=== PATIENT | female | born 1965 | race Caucasian/White ===

== ENCOUNTER → 2017-04-25 | Outpatient (CLI) | payer BC ==
[~2017-04-25] MED LIST: CALC-51 PO; CHOL1000 PO; CYCL0.052 OP; FLUO0.05 TD; IBUP-103 PO; JNL12021 PO; NYSTCRE32 TD; PANT40TA PO; RSTOPS OP; SIME80CH PO; SULF800T23 PO
--- NOTE | 2017-04-25 16:06 | DIAGNOSTIC IMAGING REPORT ---
RIGHT THUMB 3 VIEWS CLINICAL HISTORY: Right thumb pain COMPARISON: None DISCUSSION: No fractures are visualized. There are no erosive changes. There is equivocal 7 mm lytic focus involving the base of the distal phalanx. Correlation with the patient's site of pain is recommended. If the patient has pain localized to this area, an MRI could be obtained in follow-up to confirm or refute the presence of a true lesion there is no significant soft tissue swelling IMPRESSION: Equivocal 7 mm lytic lesion involving the base of distal phalanx of the thumb. Correlation with the patient's site of pain is recommended. An MRI could be obtained in follow-up as deemed clinically indicated. Electronically signed by: Heber Deras M.D. 04/25/2017 4:05 PM Dictated Date/Time: 04/25/2017 4:02 PM
== END | disposition home or self-care (01) ==
LOC: C.RADBC 15:46
PROVIDERS: ATTEND Physician Assistant Medical
DX: M79.644 Pain in right finger(s) (principal); M25.841 Other specified joint disorders, right hand

== ENCOUNTER → 2017-04-26 | Outpatient (CLI) | payer BC ==
[2017-04-26 09:32] LABS: BASO % 0.5 %; BASO ABS # 0.03 K/uL (0-0.2); COMPLETE YES; EOS % 5.9 %; HEMATOCRIT 44.5 % (37-47); IG% 0.2 %; LYMPH % 42.7 %; LYMPH ABS # 2.67 K/uL (1.2-3.4); MEAN CELL VOLUME 94.1 fL (80-100); MEAN CORPUSCULAR HEMOGLOBIN 31.9 pg (25-34); MEAN CORPUSCULAR HGB CONC 33.9 g/dl (32-36); MEAN PLATELET VOLUME 9.4 fL (7.4-10.4); MONO % 8.8 %; NEUT % 41.9 %; PLATELET COUNT 303 K/uL (130-400); RED BLOOD COUNT 4.73 M/uL (4.2-5.4); WHITE BLOOD COUNT 6.25 K/uL (4.8-10.8)
[2017-04-26 10:12] LABS: CHOLESTEROL/HDL RATIO 2.1
[2017-04-26 10:15] LABS: ALT/SGPT 24 U/L (12-78); AST/SGOT 20 U/L (15-37); BLOOD UREA NITROGEN 13 mg/dl (7-18); CALCIUM 9.5 mg/dl (8.5-10.1); CARBON DIOXIDE 31 mmol/L (21-32); CHLORIDE 106 mmol/L (98-107); CREATININE 0.79 mg/dl (0.60-1.20); GLUCOSE 100 mg/dl (70-99); SODIUM 141 mmol/L (136-145)
[2017-04-26 10:18] LABS: ALB/GLOB RATIO 1.1 (0.9-2); ALKALINE PHOSPHATASE 126 U/L (45-117)
[2017-04-26 12:48] LABS: URINE APPEARANCE CLEAR (CLEAR); URINE BILIRUBIN NEG (NEG); URINE COLOR YELLOW; URINE EPITHELIAL CELL AUTO 0-5 /lpf (0-5); URINE NITRITE NEG (NEG); URINE PH 6.5 (4.5-7.5); URINE SPECIFIC GRAVITY 1.018 (1.000-1.030); UROBILINOGEN NEG (NEG)
[2017-04-26 12:56] LABS: MANUAL MICROSCOPIC REQUIRED? NO; REVIEW REQ? NO
[2017-04-26 13:34] LABS: URINE PROTIEN/CREAT RATIO 0.1 (0-0.2); URINE TOTAL PROTEIN 10.4 mg/dl (0-11.9)
--- NOTE | 2017-05-10 07:54 | CODING QUERY MEDICAL NECESSITY ---
CQSUPPORTING DIAGNOSIS NEEDED A supporting diagnosis is required for the test/procedure performed on this patient in order for us to be reimbursed by the patient's insurance. Please provide a supporting diagnosis for the following test/procedure listed below next to the test name along with your signature. *If there is no additional diagnosis for this patient that would support the following test/procedure please document that below next to the test/procedure. Test(s)/Procedure(s) that require a supporting diagnosis: UBALDO 04/26/17 VITAMIN D TEST Provider Signature: Date: Thank you Nia Rachel Health Information Management Once completed, please kindly fax back to [phone] For questions please call [phone]
== END | disposition home or self-care (01) ==
LOC: C.LAB1850 08:38
PROVIDERS: ATTEND Internal Medicine Nephrology
DX: Z00.00 Encounter for general adult medical examination without abnormal findings (principal); R52 Pain, unspecified; N02.8 Recurrent and persistent hematuria with other morphologic changes; R31.29 Other microscopic hematuria; E55.9 Vitamin D deficiency, unspecified

== ENCOUNTER → 2017-05-07 | Outpatient (CLI) | payer BC ==
--- NOTE | 2017-05-08 08:01 | MAMMOGRAPHY REPORT ---
BILATERAL DIGITAL SCREENING MAMMOGRAM TOMOSYNTHESIS WITH CAD: 05/07/2017 CLINICAL HISTORY: Routine screening. Patient has no complaints. TECHNIQUE: Breast tomosynthesis in addition to standard 2D mammography was performed. Current study was also evaluated with a Computer Aided Detection (CAD) system. COMPARISON: Comparison is made to exams dated: 04/21/2016 mammogram, 04/16/2015 mammogram, 03/18/2014 m ammogram, 03/11/2013 mammogram, 03/04/2012 mammogram, and 02/27/2011 mammogram - [facility] ter. BREAST COMPOSITION: The tissue of both breasts is heterogeneously dense, which may obscure small mas ses. FINDINGS: The parenchymal pattern is unchanged. No developing mass, architectural distortion or clus ter of suspicious microcalcifications is seen in either breast. IMPRESSION: ACR BI-RADS CATEGORY 2: BENIGN There is no mammographic evidence of malignancy. A 1 year screening mammogram is recommended. The pa tient will receive written notification of the results. Approximately 10% of breast cancers are not detected with mammography. A negative mammographic report should not delay biopsy if a clinically suggestive mass is present. Vane Richard M.D. ay/:05/07/2017 15:41:28 Linux Server Engineer: Dilma OWEN(Marino)(M), [facility] letter sent: Normal 1/2 BI-RADS Code: ACR BI-RADS Category 2: Benign
== END | disposition home or self-care (01) ==
LOC: C.MAMM 14:48
PROVIDERS: ATTEND Obstetrics & Gynecology
DX: Z12.31 Encounter for screening mammogram for malignant neoplasm of breast (principal)

== ENCOUNTER → 2017-05-07 | Outpatient (CLI) | payer BC ==
--- NOTE | 2017-05-07 18:37 | DIAGNOSTIC IMAGING REPORT ---
MRI OF THE RIGHT THUMB WITHOUT CONTRAST CLINICAL HISTORY: Lytic lesion base of right thumb. Right thumb pain. COMPARISON STUDY: Right thumb radiographs April 25, 2017. TECHNIQUE: Utilizing a 1.5 Jeri magnet and dedicated coil, multiplanar, multiecho imaging of the right thumb was performed without intravenous or intra-articular contrast. FINDINGS: A marker was placed on the skin at site of maximal pain. This marker is along the radial aspect of the right first metacarpophalangeal joint. No marrow edema or marrow replacement is present. The equivocal lesion within the distal phalanx of the right thumb on radiographs of April 25, 2017 is not visualized. This was artifactual. No mass or fluid collection is identified on this examination. Flexor and extensor tendons appear unremarkable. There is minimal osteophytosis of the right first metacarpophalangeal joint as well as mild osteophytosis of the right first carpometacarpal joint. Intrinsic ligaments of the right thumb are suboptimally assessed on this exam but appear grossly intact. IMPRESSION: 1. No right thumb lesion. The equivocal lesion shown on radiographs April 25, 2017 was artifactual. 2. Mild osteoarthritis of the right first carpometacarpal joints and metacarpophalangeal joints. Electronically signed by: Chad Faith M.D. 05/07/2017 6:36 PM Dictated Date/Time: 05/07/2017 4:51 PM
== END | disposition home or self-care (01) ==
LOC: C.MRIBC 15:37
PROVIDERS: ATTEND Physician Assistant Medical
DX: L98.9 Disorder of the skin and subcutaneous tissue, unspecified (principal)

== ENCOUNTER 2017-09-09 12:42 | Emergency (ER) | payer BC ==
[~2017-09-09] VITALS: Ht 157.5 cm; Wt 66.9 kg
[~2017-09-09 12:42] MED LIST changes: -CALC-51 PO; -CHOL1000 PO; -CYCL0.052 OP; -IBUP-103 PO; -SULF800T23 PO
[2017-09-09 13:04] VITALS: TEMP 37; Ht 157.5 cm; Wt 66.9 kg
[2017-09-09] MEDS ORDERED: ONDANSETRON INJ 2 MG/ML 2 ML VIAL IV STA (13:37)
[2017-09-09] MEDS ORDERED: SODIUM CHLORIDE 0.9% 500ML 500 ML IV STA (13:37)
[2017-09-09] MEDS ORDERED: HYDROmorphone INJ 0.5 MG/0.5 ML SYR IV STA (13:37)
[2017-09-09] MEDS ORDERED: CEFTRIAXONE SOD INJ 1 GM ADDVIAL IV STA (13:37)
[2017-09-09] MEDS ORDERED: SULFAMETHOXAZOLE/TRIMETHOPRIM DS 800/160MG TAB PO STA (13:37)
[2017-09-09] MEDS ORDERED: KETOROLAC TROMETHAMINE 30 MG/ML VIAL IV STA (13:37)
--- NOTE | 2017-09-09 13:47 | EMERGENCY ROOM VISIT NOTE ---
History Report prepared by Jeffrey: Bassem Shanks Under the Supervision of: Dr. Trevor Zeng M.D. First contact with patient: 13:33 Chief Complaint: WOUND RECHECK Stated Complaint: REDNESS/SWELLING-TRIGGER THUMB SURGERY SITE Nursing Triage Summary: Patient states "I had a a trigger thumb procedure on 08/23/17. My site is red and swollen, no discharge since Sunday at 4:00 am. I woke up and could not move my hand. It was swollen and painful." History of Present Illness The patient is a 51 year old female who presents to the Emergency Room with complaints of an infected wound on her right thumb starting two nights ago. She states that she had trigger finger release of the right thumb on 08/23, and she states that two nights ago it became painful and tender to the touch with some drainage. Source of History: patient Onset: two days ago Position: finger(s) (right thumb) Quality: other (infection) Timing: constant Note: Associated symptoms: redness, tender, and drainage. Review of Systems See HPI for pertinent positives & negatives. A total of 10 systems reviewed and were otherwise negative. Past Medical & Surgical Medical Problems: (1) Trigger finger Surgical Problems: (1) Status post trigger finger release Social History Smoking Status: Never Smoker Marital Status: Housing Status: lives with family Occupation Status: employed Current/Historical Medications Scheduled Calcium Carbonate-Vitamin D (Calcium), 1 TAB PO DAILY Cholecalciferol (Vitamin D3), 1 CAP PO DAILY Cyclosporine (Ophth) (Restasis), 1 DROP OP BID Sulfa/Trimethoprim (Bactrim Ds 800MG/160MG), 1 TAB PO BID Scheduled PRN Ibuprofen Tab (Advil), 200-600 MG PO Q4H PRN for Pain Allergies Coded Allergies: Lobster (Verified Allergy, Intermediate, VIOLENTLY ILL WITH HIVES THE NEXT DAY, 09/09/17) PATIENT DOES OKAY WITH ALL OTHER SEAFOODS. Penicillins (Verified Adverse Reaction, Intermediate, VOMITING, 09/09/17) Chocolate (Verified Adverse Reaction, Unknown, MOOD SWINGS/BAD HEADACHES/ GI UPSET, 09/09/17) [place] Oil (Verified Adverse Reaction, Unknown, DIARRHEA WITH EXCESS, ) Pork (Verified Adverse Reaction, Unknown, DIARRHEA WITH EXCESS, 09/09/17) Physical Exam Vital Signs Date Time Temp Pulse Resp B/P (MAP) Pulse Ox O2 Delivery O2 Flow Rate FiO2 09/09/17 15:05 72 18 116/72 98 Room Air 09/09/17 13:04 37.0 87 18 117/79 98 Room Air Physical Exam GENERAL: Patient is a healthy-appearing well-nourished female HEAD: Normocephalic atraumatic EYES: Ocular movements intact pupils equal and react to light OROPHARYNX mucous membranes are moist no exudates present no erythema or edema present NECK: Supple no nuchal rigidity CHEST: Good equal expansion LUNGS: Clear and equal to auscultation CARDIAC: Normal S1 and S2 ABDOMEN: Soft nontender no guarding BACK: No CVA tenderness EXTREMITIES: Granulation tissue with redness noted. Exquisitely tender to the touch. No pain upon palpation normal muscle strength in all groups no clubbing cyanosis or edema NEURO: Patient is following commands and answering questions appropriately. Alert and oriented x3 Cranial Nerves 2-12 grossly intact Medical Decision & Procedures ER Provider Diagnostic Interpretation: Radiology results as stated below per my review and radiologist interpretation: RIGHT THUMB 3 VIEWS HISTORY: Pt c/o Rt thumb pain COMPARISON: Right thumb MRI 05/07/2017. A right thumb radiograph 04/25/2017. FINDINGS: There is no fracture or dislocation. Distal soft tissue swelling. No radiopaque foreign bodies. IMPRESSION: No fractures. Distal soft tissue swelling. Electronically signed by: Vernon Soliz M.D. 09/09/2017 2:14 PM Dictated Date/Time: 09/09/2017 2:12 PM Laboratory Results 09/09/17 13:55 Red Blood Count 4.73, Mean Corpuscular Volume 91.8, Mean Corpuscular Hemoglobin 31.3, Mean Corpuscular Hemoglobin Concent 34.1, Mean Platelet Volume 9.5, Neutrophils (%) (Auto) 61.8, Lymphocytes (%) (Auto) 27.3, Monocytes (%) (Auto) 7.6, Eosinophils (%) (Auto) 2.8, Basophils (%) (Auto) 0.4, Neutrophils # (Auto) 5.74, Lymphocytes # (Auto) 2.54, Monocytes # (Auto) 0.71, Eosinophils # (Auto) 0.26, Basophils # (Auto) 0.04 09/09/17 14:07 Test 09/09/17 13:55 09/09/17 14:07 White Blood Count 9.30 K/uL (4.8-10.8) Red Blood Count 4.73 M/uL (4.2-5.4) Hemoglobin 14.8 g/dL (12.0-16.0) Hematocrit 43.4 % (37-47) Mean Corpuscular Volume 91.8 fL (80-100) Mean Corpuscular Hemoglobin 31.3 pg (25-34) Mean Corpuscular Hemoglobin Concent 34.1 g/dl (32-36) Platelet Count 285 K/uL (130-400) Mean Platelet Volume 9.5 fL (7.4-10.4) Neutrophils (%) (Auto) 61.8 % Lymphocytes (%) (Auto) 27.3 % Monocytes (%) (Auto) 7.6 % Eosinophils (%) (Auto) 2.8 % Basophils (%) (Auto) 0.4 % Neutrophils # (Auto) 5.74 K/uL (1.4-6.5) Lymphocytes # (Auto) 2.54 K/uL (1.2-3.4) Monocytes # (Auto) 0.71 K/uL (0.11-0.59) Eosinophils # (Auto) 0.26 K/uL (0-0.5) Basophils # (Auto) 0.04 K/uL (0-0.2) RDW Standard Deviation 41.0 fL (36.4-46.3) RDW Coefficient of Variation 12.1 % (11.5-14.5) Immature Granulocyte % (Auto) 0.1 % Immature Granulocyte # (Auto) 0.01 K/uL (0.00-0.02) Anion Gap 7.0 mmol/L (3-11) Est Creatinine Clear Calc Drug Dose 66.3 ml/min Estimated GFR () 86.9 Estimated GFR (Non- 75.0 BUN/Creatinine Ratio 14.6 (10-20) Calcium Level 9.0 mg/dl (8.5-10.1) Labs reviewed by ED physician. Medications Administered Medications (Trade) Dose Ordered Sig/Jose Route Start Time Stop Time Status Last Admin Dose Admin Ceftriaxone Sodium (Rocephin Inj) 1 gm NOW STAT IV 09/09/17 13:37 09/09/17 13:41 DC 09/09/17 13:37 1 GM Trimethoprim/ Sulfamethoxazole (Septra Ds 800/ 160MG Tab) 1 tab NOW STAT PO 09/09/17 13:37 09/09/17 13:41 DC 09/09/17 13:37 1 TAB Sodium Chloride 500 ml @ 999 mls/hr Q31M STAT IV 09/09/17 13:37 09/09/17 14:07 DC 09/09/17 13:37 999 MLS/HR Ketorolac Tromethamine (Toradol Inj) 30 mg NOW STAT IV 09/09/17 13:37 09/09/17 13:41 DC 09/09/17 13:37 30 MG Hydromorphone HCl (Dilaudid Inj) 0.5 mg NOW STAT IV 09/09/17 13:37 09/09/17 13:41 DC 09/09/17 13:37 0.5 MG Ondansetron HCl (Zofran Inj) 4 mg NOW STAT IV 09/09/17 13:37 09/09/17 13:41 DC 09/09/17 13:37 4 MG ED Course 1333: Past medical records reviewed. The patient was evaluated in room C7. A complete history and physical examination was performed. 1337: Zofran Inj 4mg IV, Dilaudid Inj 0.5mg IV, Toradol 30mg IV, Sodium Chloride 500 ml @ 999 mls/hr IV, Septra Ds 800/160mg 1 Tab PO, Rocephin 1gm IV 1444: I discussed the patient's case with Dr. Gore, Orthopedics, and he is going to follow up with the patient tomorrow at 11am at the [place] office. 1451: Upon reexamination the patient is doing well. I discussed results and treatment plan with the patient. She verbalizes agreement and understanding. The patient is ready for discharge. Medical Decision Differential diagnosis: Etiologies such as viral syndrome, otitis, pharyngitis, pneumonia, influenza, meningitis, urinary tract infection, sepsis, bacteremia, as well as others were entertained. This is a 51-year-old female who presents emergency part complaining of right thumb pain. The patient recently had surgery done to this thumb. She has what appears to be a cellulitis extending from it. blood cultures were taken. The patient received IV Rocephin as well as Bactrim in the emergency department. I did discuss the case with Dr. yoon asking who asked that the patient follow-up with him in the office tomorrow. The patient was in agreement with this. The patient has an aversion to Keflex so she will be placed on Bactrim. The patient was also given Dilaudid for her pain Medication Reconcilliation Current Medication List: was personally reviewed by me Blood Pressure Screening Patient's blood pressure: Normal blood pressure Consults Time Called: 1440 Consulting Physician: Dr. Gore, Orthopedics Returned Call: [phone] I discussed the patient's case with Dr. Gore, Orthopedics, and he is going to follow up with the patient tomorrow at 11am at the [place] office. Impression Primary Impression: Encounter for wound re-check Scribe Attestation The scribe's documentation has been prepared under my direction and personally reviewed by me in its entirety. I confirm that the note above accurately reflects all work, treatment, procedures, and medical decision making performed by me. Departure Information Dispostion Home / Self-Care Prescriptions Sulfa/Trimethoprim (Bactrim Ds 800MG/160MG) Tab 1 TAB PO BID for 10 Days, #20 TAB Prov: Trevor Zeng MD 09/09/17 Referrals Flakito Carolina M.D. (PCP) Forms HOME CARE DOCUMENTATION FORM, IMPORTANT VISIT INFORMATION, WORK / SCHOOL INSTRUCTIONS Patient Instructions My [facility] Additional Instructions Follow up with DR Gore's [place] office tomorrow 11 AM ([address]) You received narcotic or benzodiazepene medication while in the emergency room today. This is an addictive medication that may cause drowziness as well as constipation. Do not drive, operate heavy machinery, or drink alcohol under the influence of this medication. Take 600 mg Ibuprofen every 6 hours Take [place] for breakthrough pain Culture results are usually available in approx 48 hours You have been examined and treated today on an emergency basis only. This is not a substitute for, or an effort to provide, complete comprehensive medical care. It is impossible to recognize and treat all injuries or illnesses in a single emergency department visit. It is therefore important that you follow up closely with Dr Carolina. Call as soon as possible for an appointment. Thank you for your time and consideration. I look forward to speaking with you again soon. Please don't hesitate to call us if you have any questions.
[2017-09-09] MEDS ORDERED: CALC-51 PO (13:48)
[2017-09-09] MEDS ORDERED: CHOL1000 PO (13:48)
[2017-09-09] MEDS ORDERED: CYCL0.052 OP (13:48)
[2017-09-09] MEDS ORDERED: IBUP-103 PO (13:48)
--- NOTE | 2017-09-09 14:16 | DIAGNOSTIC IMAGING REPORT ---
RIGHT THUMB 3 VIEWS HISTORY: Pt c/o Rt thumb pain COMPARISON: Right thumb MRI 05/07/2017. A right thumb radiograph 04/25/2017. FINDINGS: There is no fracture or dislocation. Distal soft tissue swelling. No radiopaque foreign bodies. IMPRESSION: No fractures. Distal soft tissue swelling. Electronically signed by: Vernon Soliz M.D. 09/09/2017 2:14 PM Dictated Date/Time: 09/09/2017 2:12 PM
[2017-09-09 14:27] LABS: BASO % 0.4 %; BASO ABS # 0.04 K/uL (0-0.2); COMPLETE YES; EOS % 2.8 %; HEMATOCRIT 43.4 % (37-47); IG% 0.1 %; LYMPH % 27.3 %; LYMPH ABS # 2.54 K/uL (1.2-3.4); MEAN CELL VOLUME 91.8 fL (80-100); MEAN CORPUSCULAR HEMOGLOBIN 31.3 pg (25-34); MEAN CORPUSCULAR HGB CONC 34.1 g/dl (32-36); MEAN PLATELET VOLUME 9.5 fL (7.4-10.4); MONO % 7.6 %; NEUT % 61.8 %; PLATELET COUNT 285 K/uL (130-400); RED BLOOD COUNT 4.73 M/uL (4.2-5.4)
[2017-09-09 14:40] LABS: BUN/CREATININE RATIO 14.6 (10-20); CREATININE 0.88 mg/dl (0.60-1.20); POTASSIUM 3.8 mmol/L (3.5-5.1)
[2017-09-09] MEDS ORDERED: SULF800T23 PO (14:59)
[2017-09-09 15:05] VITALS: BP 116/72; PULSE 72; O2SAT 98
== END 2017-09-09 15:39 | disposition home or self-care (01) ==
LOC: C.EDB 12:48 → C.EDC 15:39
DX: Z48.01 Encounter for change or removal of surgical wound dressing (principal); Z87.828 Personal history of other (healed) physical injury and trauma; Z79.899 Other long term (current) drug therapy; Z88.0 Allergy status to penicillin; Z91.018 Allergy to other foods

== ENCOUNTER → 2017-10-15 | Outpatient (CLI) | payer BC ==
[~2017-10-15] MED LIST changes: +CALC-51 PO; +CHOL1000 PO; +CYCL0.052 OP; -FLUO0.05 TD; +IBUP-103 PO; -JNL12021 PO; -NYSTCRE32 TD; -PANT40TA PO; -RSTOPS OP; -SIME80CH PO
--- NOTE | 2017-10-15 10:27 | DIAGNOSTIC IMAGING REPORT ---
THORACIC SPINE 3 VIEWS HISTORY: Back pain, Muscle spasm of back COMPARISON: Chest CTA 06/28/2006. FINDINGS: There is no fracture. No subluxation. Mild disc space narrowing within the upper to mid thoracic spine. There is moderate disc space narrowing with endplate osteophytes and endplate sclerosis at T9-T10. This area of suspected degenerative change is out of portion to the remaining sites. Paraspinal soft tissues are unremarkable. Mild levoscoliosis of the lumbar spine. IMPRESSION: 1. No fracture or subluxation within the thoracic spine. 2. The majority of the thoracic spine levels demonstrate mild degenerative disc disease. However, there is focal area of endplate sclerosis and osteophytes at the T9-T10 level which is out of proportion for the remaining areas of the spine. This favors advanced degenerative change. However, if there is focal pain at this location then a dedicated CT is recommended to exclude the less likely possibility of an old traumatic or an old infectious process which could also result in a similar appearance. There is no paraspinal soft tissue swelling to suggest an acute process. Electronically signed by: Vernon Soliz M.D. 10/15/2017 10:25 AM Dictated Date/Time: 10/15/2017 10:20 AM
== END | disposition home or self-care (01) ==
LOC: C.RADBC 09:51
PROVIDERS: ATTEND Physician Assistant Medical
DX: M54.9 Dorsalgia, unspecified (principal); M62.830 Muscle spasm of back

== ENCOUNTER → 2018-04-10 | Outpatient (CLI) | payer BC ==
[2018-04-10 13:23] LABS: BASO % 0.8 %; BASO ABS # 0.05 K/uL (0-0.2); EOS % 4.6 %; EOS ABS # 0.29 K/uL (0-0.5); HEMATOCRIT 42.4 % (37-47); HEMOGLOBIN 14.5 g/dL (12.0-16.0); IG# 0.01 K/uL (0.00-0.02); LYMPH % 40.8 %; LYMPH ABS # 2.57 K/uL (1.2-3.4); MEAN CELL VOLUME 92.6 fL (80-100); MEAN CORPUSCULAR HEMOGLOBIN 31.7 pg (25-34); MEAN CORPUSCULAR HGB CONC 34.2 g/dl (32-36); MONO % 7.3 %; MONO ABS # 0.46 K/uL (0.11-0.59); NEUT % 46.3 %; NEUT ABS # 2.92 K/uL (1.4-6.5); PLATELET COUNT 282 K/uL (130-400); RED CELL DISTRIBUTION WIDTH CV 12.7 % (11.5-14.5); RED CELL DISTRIBUTION WIDTH SD 43.2 fL (36.4-46.3)
[2018-04-10 13:36] LABS: HEMOGLOBIN A1C 5.7 % (4.5-5.6)
[2018-04-10 14:10] LABS: ALBUMIN 3.9 gm/dl (3.4-5.0); ALKALINE PHOSPHATASE 108 U/L (45-117); ALT/SGPT 20 U/L (12-78); AST/SGOT 18 U/L (15-37); BLOOD UREA NITROGEN 17 mg/dl (7-18); CALCIUM 9.2 mg/dl (8.5-10.1); CARBON DIOXIDE 25 mmol/L (21-32); CHOLESTEROL 186 mg/dl (0-200); CREATININE 0.87 mg/dl (0.60-1.20); GLUCOSE 90 mg/dl (70-99); LDL CHOLESTEROL CALCULATED 88 mg/dl; POTASSIUM 4.1 mmol/L (3.5-5.1); SODIUM 141 mmol/L (136-145); TOTAL PROTEIN 7.4 gm/dl (6.4-8.2)
== END | disposition home or self-care (01) ==
LOC: C.LABBC 09:22
PROVIDERS: ATTEND Internal Medicine Geriatric Medicine
DX: Z00.00 Encounter for general adult medical examination without abnormal findings (principal); N02.8 Recurrent and persistent hematuria with other morphologic changes; M54.9 Dorsalgia, unspecified; Z11.59 Encounter for screening for other viral diseases